=== PATIENT | female | born 1960 | race Caucasian/White ===

== ENCOUNTER 2025-05-20 14:11 | Outpatient (AMB) | payer OTHER, SELFPAY ==
--- NOTE | 2025-05-20 14:45 | MHC.OFFVIS ---
Intake Visit Reasons: 1 yr Sz Allergies Penicillins Allergy (Unknown, Verified 05/20/25 14:46) Unknown Medication List - Last Reconciled 05/20/25 by Porsha Olson CNP atenolol 50 mg PO DAILY atorvastatin 40 mg PO DAILY cholecalciferol (vitamin D3) 1,250 mcg PO QWEEK clonidine HCl mg PO divalproex (Depakote) 500 mg PO BID 90 days hydrochlorothiazide 25 mg PO DAILY losartan 100 mg PO DAILY metformin 500 mg PO BID omeprazole 20 mg PO DAILY oxybutynin chloride ER 10 mg PO DAILY HPI Comments Details: She was doing okay. No seizures. She has been seizure free for over 10 years. No medication side effects. Mild intermittent tremor in left hand is unchanged, mild, and no functional impairment. She notices it more when trying to hold something, like a plate of food. Walking with cane, no falls. Sleep was okay. History of idiopathic generalized tonic-clonic seizures. Her first seizure was in 1976 after the of her son and the second seizure after the of her daughter in 1991. She had a seizure recurrence in December of 2006 after she was weaned off her Depakote. It is described as a generalized tonic-clonic seizure with tongue biting but no incontinence. Since then, she has been on Depakote 500 mg twice a day with therapeutic drug levels and no seizure recurrence. She reports no side effects. Tremor in left hand intermittently and has not changed. Bladder control problems and urgency for which she is seeing urologist [facility] Medical History (Updated 05/20/25 @ 14:47 by Porsha Olson CNP) Benign essential tremor Seizure disorder Essential hypertension Other convulsions Review of Systems Const Denies chills, Denies daytime sleepiness, Denies difficulty sleeping, Denies fatigue, Denies fever(s), Denies frequent falls, Denies headache(s), Denies increased appetite, Denies poor appetite, Denies snoring, Denies weakness, Denies weight gain and Denies weight loss Eyes Denies loss of vision ENT Denies vertigo, Denies dizziness, Denies headache(s) and Denies neck pain Card Denies chest pain at rest, Denies chest pain with activity, Denies syncope, Denies leg edema, Denies palpitations, Denies dyspnea and Denies dyspnea on exertion Resp Denies cough, Denies dyspnea, Denies dyspnea on exertion and Denies snoring GI Denies abdominal pain, Denies constipation, Denies heartburn, Denies diarrhea and Denies nausea Denies urinary frequency, Denies urinary incontinence and Denies urinary urgency Musc Denies abnormal gait, Denies back pain, Denies myalgias, Denies arthralgias, Denies neck pain, Denies numbness and Denies tingling Neuro Denies abnormal gait, Denies vertigo, Denies dizziness, Denies syncope, Denies frequent falls, Denies headache(s), Denies lack of coordination, Denies loss of vision, Denies memory loss, Denies numbness, Denies Other visual disturbances, Denies restless legs, Denies seizure-like activity, Denies tingling, Denies paresthesias, Reports tremor(s) and Denies weakness Psych Denies anxiety, Denies depression, Denies auditory hallucinations, Denies memory loss and Denies visual hallucinations Endo Denies fatigue and Denies palpitations Physical Exam Const Other: General Appearance:? normal, in no acute distress. Heart:? S1, S2 normal, no murmurs. Lungs:? clear anteriorly and posteriorly. Musculoskeletal:? normal. Extremities:? no edema. Psych:? alert, oriented, cognitive function intact, cooperative with exam. Neuro Other: Abnormal Neurological Findings:?Very mild tremor in left hand, primarily thumb, on sustained posture. Walking with cane. Mental Status: alert and oriented X 3. Normal attention, orientation, memory, and affect. Cranial Nerves: Pupils are equal, round, and reactive to light. External ocular muscles are intact. Visual boyd are full, no ptosis. Face is symmetrical, no facial weakness or droop. Facial sensations are normal. Tongue protrudes in midline. Palate elevates symmetrically. Shoulder shrugging is normal Motor Examination: Normal muscle tone, bulk and strength. No atrophy or fasciculations. No drift of the extended upper extremities. DTR 2+. Plantars are flexor. Straight Leg Raisin degrees. Sensory Exam: Normal light touch, temperature, pinprick, vibration, and joint-position sensations. Rhomberg sign is absent. Coordination: No ataxia. No titubation. Gait Exam: With cane. Cerebellar Signs: [id number] and [id number] is normal. No dysdiadochokinesia. Extrapyramidal System: Tremor as above. No rigidity with normal facial expressions. No bradykinesia. No bradyphrenia. Normal arm swing and posture. No propulsion or retropulsion. Speech: Normal. No dysphasia or dysarthria. Assessment & Plan Assessment & Plan (1) Seizure disorder: Code(s): G40.909 - Epilepsy, unspecified, not intractable, without status epilepticus Category: Medical Plan: Continue Depakote 500mg 1 tablet twice a day. (2) Benign essential tremor: Code(s): G25.0 - Essential tremor Category: Medical Plan: Tremor was unchanged, mild and no functional impairment. No medication was needed at this time. Coding Level of Care Code Est Pt Level 3 (87782) Diagnoses Seizure disorder G40.909 Benign essential tremor G25.0
--- OUTSIDE RECORDS SUMMARY | 2025-05-20 15:08 | XMS_ITS | Clinical Summary ---
Author Organization [facility] [address] [facility] l[address] Address [address] [place] [address] Phone Care Team Providers Care Supervisor Ship Maintenance Services Name Role Phone Elizabeth Smith MD Primary Care Provider [phone] Allergies Active Allergy Reactions Criticality Noted Date Comments Amlodipine Swelling Medium 03/03/2017 Benzonatate Numbness 02/14/2014 tingling or swelling of the lips, tongue or mouth Penicillin G Potassium Nausea And Vomiting 12/08 Medications diclofenac (VOLTAREN) 1 % topical gel Apply 2 g topically 2 times daily as needed for Other (Knee PAIN). 4 Active oxyBUTYnin XL (DITROPAN-XL) 10 mg 24 hr tablet Take 1 tablet (10 mg total) by mouth 1 (one) time each day. 4 Active blood-glucose meter misc 1 Device by Does not apply route daily. 2 Active multivit-min/iro n/folic acid/K (ADULTS MULTIVITAMIN ORAL) Take by mouth. Active divalproex (Depakote) [address] tablet 1 tab bid 8 Active omeprazole (PriLOSEC) [address] capsule Take 1 capsule (20 mg total) by mouth 1 (one) time each day. 90 capsule 1 5 Active atenoloL (TENORMIN) 50 mg tablet TAKE 1 TABLET BY MOUTH DAILY 90 tablet 1 5 Active hydroCHLOROthiaz brittany (HYDRODIURIL) 25 mg tablet Take 1 tablet (25 mg total) by mouth 1 (one) time each day. 90 tablet 1 5 Active atorvastatin (LIPITOR) 40 mg tablet Take 1 tablet (40 mg total) by mouth 1 (one) time each day. 90 tablet 1 5 Active cloNIDine (CATAPRES) 0.1 mg tablet Take 1 tablet (0.1 mg total) by mouth 1 (one) time each day. 90 tablet 1 5 Active metFORMIN (GLUCOPHAGE) 500 mg tablet Take 1 tablet (500 mg total) by mouth 2 (two) times a day. 180 tablet 1 5 Active cholecalciferol (VITAMIN D-3) 1,250 mcg (50,000 unit) capsule Take 1 capsule (50,000 Units total) by mouth 1 (one) time per week. 12 capsule 5 Active losartan (COZAAR) 100 mg tablet Take 1 tablet (100 mg total) by mouth 1 (one) time each day. 90 tablet 5 Active losartan (COZAAR) 100 mg tablet Take 1 tablet (100 mg total) by mouth 1 (one) time each day. 90 tablet 1 5 05/20/20 25 Discontin ued(Reord er) Active Problems Problem Noted Date Diagnosed Date Vitamin D deficiency 02/04/2025 Type 2 diabetes mellitus wit h diabetic microalbuminuria, without long-term current use of insulin ([facility] V24, [facility] V28) 03/27/2023 Microalbuminuria 08/06/2021 Bilateral primary osteoarthritis of knee 020 DJD (degenerative joint disease) of knee 017 Overview (07/10/2024): 03/21/2018 - depo-medrol 80 mg bilateral GERD (gastroesophageal reflux disease) 6 Mixed hyperlipidemia 02/01/2013 Allergic rhinitis 01/04/2008 Hypertension 01/04/2008 Seizure disorder ([facility] V24, [facility] V28) 03/2 05/2008 Overview (07/10/2024): Followed by Dr. Hebert, last seizure 2007 Immunizations Name Administration Dates Next Due H1N1 Inj Preservative Free 09/14/2009 Influenza Quadravalent, MDCK , 0.5ml, preservative free (Flucelvax) 6mo and older 08/04/2021 Influenza trivalent, 0.5mL ( Fluzone High-dose) 65yo and older 09/08/2023 Influenza trivalent, 0.5mL, preservative free (Fluarix; FluLaval; Fluzone) ages 6mo and older (Afluria) 3 years and older 05/19/2016 Influenza trivalent, with pr eservative (Fluzone; Afluria) 6mo and older 05/05/2015,08/12/2010 Influenza, Unspecified 05/31/2018,2016,05/29/2014,05/23 Fibrenetix SARS-CoV-2 COVID-19, mRNA, LNP-S, preservative free 03/29/2022,01/16/2021,12/26/2020 Pneumococcal polysaccharide 23 valent (Pneumovax 23) 2yo and older 06/17/2013 Tdap Tetanus diptheria acell ular pertussis (Boostrix; Adacel) 7yo and older 11/19/2021 Zoster recombinant (Shingrix ) 19yo and older 05/04/2018,01/02/2018 Surgical History Surgery Date Site/Laterality Comments MULTIPLE TOOTH EXTRACTIONS PROCEDURE: HISTORICAL DENTAL EXTRACTION TUBAL LIGATION PROCEDURE: HISTORICAL TUBAL LIGATION; COMMENT: performed 2 mos s/p 2nd CS COLONOSCOPY 11/07/2008 PROCEDURE: DE COLONOSCOPY STOMA DX INCLUDING COLLJ SPEC SPX; COMMENT: Up to cecum, good preparation, normal colon exam OTHER SURGICAL HISTORY 10/09/2000 Right PROCEDURE: ---- OTHER ----; COMMENT: carpal tunnel SECTION PROCEDURE: HISTORICAL DELIVERY; COMMENT: 1976 and 1991 Medical History Medical History Date Comments Seizure disorder (CMS/HCC V2 4, CMS/HCC V28) 01/04/2008 DX:Seizure disorder ([facility]); C OMMENT: Followed by Dr. Hebert Hypertension 01/04/2008 DX:Hypertension Reflux 01/04/2008 DX:Reflux Allergic rhinitis 01/04/2008 DX:Allergic rh initis GERD (gastroesophageal reflux disease) 03/25/2016 DX:GERD (gastroesophageal reflux disease) Obesity 09/26/2013 DX:Obesity DJD (degenerative joint dise ase) of knee 01/03/2017 DX:DJD (degenerative joint d isease) of knee Severe obesity (BMI 35.0-39. 9) with comorbidity (CMS/HCC V24, CMS/HCC V28) 09/26/2013 DX:Severe obesi ty (BMI 35.0- 39.9) with comorbidity ([facility]) Family History Medical History Relation Name Comments Other: blood clot Brother 1 Heart attack Father chf, Diabetes Maternal Grandmother alem ons's Hyperlipidemia Mother [place] 2010, sten ts x 4 Hypertension Mother Diabetes Paternal Grandmother Hypertension Son Breast cancer Neg Hx Colon cancer Neg Hx Ovarian cancer Neg Hx Relation Name Status Comments Brother 1 Alive Brother 2 Alive Daughter Alive Father Maternal Grandfather Maternal Grandmother Mother Alive Paternal Grandfather Paternal Grandmother Sister 1 Alive Sister 2 Alive Son Alive Social History Tobacco Use Types Packs/Day Years Used Date Smoking Tobacco: Never Smokeless Tobacco: Never Tobacco Cessation:Counseling Given: Not Answered Alcohol Use Standard Drinks/Week Comments No 0 (1 standard drink = 0.6 oz pur e alcohol) Housing Instability Answer Date Recorde d Are you worried that in the next 2 months you may not have stable housing? No 09/17/2024 Food Access & Nutrition Answer Date Rec orded Do you have access to a vari ety of food including fruits and vegetables? Yes 09/17/2024 Access to Healthcare Answer Date Record ed Within the last 3 months, fran garcia many times did you visit the emergency department for your medical care? 0 09/17/2024 Health Literacy Answer Date Recorded How often do you need to hav e someone help you when you read instructions, pamphlets, or other written material from your doctor or pharmacy? Never 09/17/2024 Caregiver: How often do you need to have someone help you when you read instructions, pamphlets, or other written material from your doctor or pharmacy? Not on file 09/17/2024 Financial Risk Answer Date Recorded How hard is it for you to pa y for the very basics like food, housing, medical care, and air conditioning / heating? Patient declined 09/17/2024 Transportation Answer Date Recorded Has the lack of transportati on kept you from meetings, work, or from getting things needed for daily living? No Has the lack of transportati on kept you from medical appointments or from getting medications? No 09/17/2024 Social Isolation Answer Date Recorded How often do you feel lonely or isolated from th ose around you? Never 09/17/2024 Food Risk Answer Date Recorded Within the past 12 months we worried whether our food would run out before we got money to buy more. Never true 09/17/2024 Within the past 12 months th e food we bought just didn't last and we didn't have money to get more. Never true 09/17/2024 Dependent Care Answer Date Recorded Do you need help finding or paying for care for your loved ones. For example, child welfare caseworker or elderly care for an older adult? No 09/17/2024 Education Answer Date Recorded Do you think completing more education or training, like finishing a GED, going to college, or learning a trade, would be helpful for you? No 09/17/2024 Employment and Income Answer Date Recor ded During the last four weeks, have you been actively looking for work? No 09/17/2024 Living Situation Answer Date Recorded What is your living situation? 1 11/18/2023 Comments No Sex and Gender Information Value Date Recorded Sex Assigned at Not on file Legal Sex Female 4:01 AM EST Gender Identity Not on file Sexual Orientation Not on file Obstetrics History Para Term AB IAB SAB Ectopic Multiple Livin g Live Births 2 2 2 2 Date Outcome GA Total Labor Labor/2nd/3rd Weight Sex Type Anes PTL Erin A1 A5 Name Clin Term Term Last Filed Vital Signs Vital Sign Reading Time Taken Comments Blood Pressure 134/78 02/04/2025 9:51 AM EDT Pulse 54 02/04/2025 9:24 AM EDT Temperature 36.4 C (97.5 F) 02/04/2025 9:24 AM EDT Respiratory Rate 14 02/04/2025 9:24 AM EDT Oxygen Saturation - - Inhaled Oxygen Concentration - - Weight 88.9 kg (196 lb) 02/04/2025 9:24 AM EDT Height 160 cm (5' 3 ) 02/04/2025 9:24 AM EDT Body Mass Index 34.72 02/04/2025 9:24 AM EDT Plan of Treatment Upcoming Encounters Date Type Department Care Team (Late st Contact Info) Description 06/13/2025 2:00 PM EDT Office Visit Adult Medicine [facility] [address] [place] [address] Elizabeth Smith MD [address] [place] [id number] Health Maintenance Due Date Last Done Comments Diabetes: Annual Retina Eye Exam 1970 Pneumococcal Vaccine: 50+ Years (2 of 2 - PCV) 06/17/2014 06/17/2013 RSV Immunization Adult Patients (1 - Risk 60-74 years 1-dose series) 2018 Colorectal Cancer Screening: FIT-DNA (Cologuard) 09/17/2022 Medicare Annual Wellness Visit 09/17/2022 Osteoporosis Screening (Bone Density Screening) 09/17/2022 COVID-19 Vaccine ( season) 2024 03/29/2022, 02/26/2022, 01/16/2021, Additional history exists Diabetes: Annual Foot Exam 09/08/2024 09/08/2023 Depression Screening 10/09/2024 09/17/2024 Influenza Vaccine (#1) 2025 , 08/04/2021, 06/06/2020, Additional history exists Diabetes: Blood Sugar Control Test (HGBA1C) 08/06/2025 02/04/2025, 02/20/2024, 02/20/2024 Social Influencers of Health Screening 09/17/2025 09/17/2024 Falls Risk Assessment 12/17/2025 12/17/2024 Diabetes: Annual Urine Albumin-Creatinine Ratio (uACR) 02/04/2026 02/04/2025, 02/26/2024 Diabetes: Annual GFR (Glomerular Filtration Rate) 02/04/2026 02/04/2025, 02/20/2024, 02/20/2024 Hypertension/CHF/CAD Annual BMP Blood Test 02/04/2026 02/04/2025, 02/20/2024, 02/20/2024 Breast Cancer Screening 01/04/2027 01/05/20 25, 04/08/2023, 04/02/2022, Additional history exists Cholesterol Screening (Lipid Panel) 02/04/2030 02/04/2025, 08/23/2023 DTaP,Tdap,and Td Vaccines (2 - Td or Tdap) 11/19/2031 11/19/2021 Hepatitis C Screening Completed 05/25/2013 Zoster Vaccines Completed 05/04/2018, 01/02/2018 HIB Vaccines Aged Out No longer eligi ble based on patient's age to complete this topic HPV Vaccines Aged Out No longer eligi ble based on patient's age to complete this topic Hepatitis A Vaccines Aged Out No long er eligible based on patient's age to complete this topic Hepatitis B Vaccines Aged Out No long er eligible based on patient's age to complete this topic IPV Vaccines Aged Out No longer eligi ble based on patient's age to complete this topic MMR Vaccines Aged Out No longer eligi ble based on patient's age to complete this topic Meningococcal ACWY Vaccine Aged Out N o longer eligible based on patient's age to complete this topic Meningococcal B Vaccine Aged Out No l onger eligible based on patient's age to complete this topic RSV Immunization Patients Under 20 months Aged Out No longer eligible based on patient's age to complete this topic Varicella Vaccines Aged Out No longer eligible based on patient's age to complete this topic Procedures Procedure Name Priority Date/Time Associated Diagnosis Comments MICROALBUMIN CREATININE URINE RATIO Routine 02/04/2025 10:19 AM EDT Type 2 diabetes mellitus with diabetic microalbuminuria, without long-term current use of insulin ([facility] V24, [facility] V28) Microalbuminuria BASIC METABOLIC PANEL Routine 02/04/2025 10:19 AM EDT Primary hypertension HEMOGLOBIN A1C Routine 02/04/2025 10:19 AM EDT Type 2 diabetes mellitus with diabetic microalbuminuria, without long-term current use of insulin ([facility] V24, [facility] V28) Microalbuminuria LIPID PANEL WITH REFLEX TO DIRECT LDL Routine 02/04/2025 10:19 AM EDT Mixed hyperlipidemia MG MAMMO DIGITAL SCREENING W BONIFACIO BILAT Routine 01/04/2025 1:24 PM EDT Encounter for screening mammogram for breast cancer DIABETES FOOT EXAM Routine 09/08/2023 HEPATITIS C SCREENING Routine 05/25/2013 from Last 3 Months or Most Recently Relevant to Health Maintenance Results * Lipid panel with reflex to direct LDL (02/04/2025 10:19 AM EDT) Cholesterol 169 0 - 200 mg/dL LAB CHEMISTRY METHOD 02/04/2025 1:00 PM EDT [facility] Triglycerides 116 0 - 150 mg/dL LAB CHEMISTRY METHOD 02/04/2025 1:00 PM EDT [facility] HDL 63 >=40 mg/dL LAB CHEMISTRY METHOD 02/04/2025 1:00 PM EDT [facility] LDL Calculated 83 0 - 100 mg/dL LAB CHEMISTRY METHOD 02/04/2025 1:00 PM EDT [facility] VLDL Cholesterol Aidan 23.2 mg/dL LAB CHEMISTRY METHOD 02/04/2025 1:00 PM EDT [facility] Non HDL Chol. (LDL+VLDL) 106 <145 mg/dL LAB CHEMISTRY METHOD 02/04/2025 1:00 PM EDT [facility] Chol/HDL Ratio 2.7 0.0 - 4.4 LAB CHEMISTRY METHOD 02/04/2025 1:00 PM EDT [facility] Blood Venous blood specimen / Unknown Venipuncture / Unknown 02/04/2025 10:19 AM EDT 02/04/2025 10:19 AM EDT us Pradeep BOLANOS LAB BLOOD ORDERABLES Final Res ult [facility] [address] [place] [address], [place] [phone] * Microalbumin creatinine urine ratio (02/04/2025 10:19 AM EDT) Creatinine, Urine 79.0 mg/dL LAB CHEMISTRY METHOD 02/04/2025 3:19 PM EDT [facility] Microalb, Ur 9.0 0.0 - 29.0 mg/L LAB CHEMISTRY METHOD 02/04/2025 3:19 PM EDT [facility] Microalb/Creat Ratio 11 <30 mg/g creat LAB CHEMISTRY METHOD 02/04/2025 3:19 PM EDT [facility] Urine Urine specimen obtained by clean catch procedure / Unknown Non-blood Collection / Unknown 02/04/2025 10:19 AM EDT 02/04/2025 10:19 AM EDT Pradeep BOLANOS LAB URINE ORDERABLES Final Res ult [facility] [address] [place] [address], [place] [phone] * Hemoglobin A1c (02/04/2025 10:19 AM EDT) [facility] Hemoglobin A1C 6.3 <6.5 % LAB CHEMISTRY METHOD 02/04/2025 1:48 PM EDT [facility] Mean Bld Glu Estim. 134 mg/dL LAB CHEMISTRY METHOD 02/04/2025 1:48 PM EDT [facility] Blood Venous blood specimen / Unknown Venipuncture / Unknown 02/04/2025 10:19 AM EDT 02/04/2025 10:19 AM EDT Pradeep BOLANOS LAB BLOOD ORDERABLES Final Res ult [facility] [address] [place], [place] [address] [phone] * (ABNORMAL) Basic metabolic panel (02/04/2025 10:19 AM EDT) Sodium 135 133 - 145 mmol/L LAB CHEMISTRY METHOD 02/04/2025 12:45 PM [facility] Potassium 3.9 3.5 - 5.5 mmol/L LAB CHEMISTRY METHOD 02/04/2025 12:45 PM [facility] Chloride 101 96 - 110 mmol/L LAB CHEMISTRY METHOD 02/04/2025 12:45 PM [facility] CO2 27 21 - 32 mmol/L LAB CHEMISTRY METHOD 02/04/2025 12:45 PM [facility] Anion Gap 7 3 - 11 LAB CHEMISTRY METHOD 02/04/2025 12:45 PM [facility] Glucose 106(H) 70 - 100 mg/dL LAB CHEMISTRY METHOD 02/04/2025 12:45 PM [facility] BUN 23 5 - 25 mg/dL LAB CHEMISTRY METHOD 02/04/2025 12:45 PM [facility] Creatinine 0.81 0.50 - 1.10 mg/dL LAB CHEMISTRY METHOD 02/04/2025 12:45 PM [facility] eGFR 80 >=60 mL/min/1. 73m2 LAB CHEMISTRY METHOD 02/04/2025 12:45 PM [facility] Comment:Calculation based on the Chronic Kidney Disease Epidemiology Collaboration (CKD-EPI) equation refit without adjustment for race. BUN/Creatinine Ratio 28.4 LAB CHEMISTRY METHOD 02/04/2025 12:45 PM [facility] Calcium 9.7 8.5 - 10.5 mg/dL LAB CHEMISTRY METHOD 02/04/2025 12:45 PM [facility] Blood Venous blood specimen / Unknown Venipuncture / Unknown 02/04/2025 10:19 AM EDT 02/04/2025 10:19 AM EDT us Pradeep BOLANOS LAB BLOOD ORDERABLES Final Res ult [facility] [address] [place] [address], [place] [phone] * MG Mammo Digital Screening w Bonifacio bilat (01/04/2025 1:24 PM EDT) Anatomical Region Laterality Modality Breast Bilateral Mammography 01/06/2025 1:53 PM EDT Impressions 01/06/2025 1:57 PM EDT Benign. BI-RADS CATEGORY: 1 - NEGATIVE RECOMMENDATION: Screening bilateral mammogram is recommended in 1 year. Mammo Location: [facility], [address] [place] [address], [id number], . -------- FINAL REPORT -------- Dictated By: Rosalba Santillan Dictated Date: 01/06/2025 13:53 ET Assigned Physician: Rosalba Santillan Reviewed and Electronically Signed By: Rosalba Santillan Signed Date: 01/06/2025 13:57 ET Workstation ID: [id number] Transcribed By: Self Edit Transcribed Date: 01/06/2025 13:53 ET Narrative 01/06/2025 1:57 PM EDT CLINICAL: 64 years old, Female, routine annual exam. COMPARISON: Mammograms dating back to 03/27/2021 with most recent of 04/08/2023. TECHNIQUE: Bilateral MLO and CC views were obtained digitally with 3-D mammogram (digital breast tomosynthesis). Computer-aided detection was utilized in evaluation of this exam (CAD). FINDINGS: There is no evidence of suspicious mass or architectural distortion. No worrisome calcifications are evident. There has been no significant change from prior exam(s). BREAST DENSITY: B - There are scattered areas of fibroglandular density. Procedure Note Rosalba Santillan MD - 01/06/2025 CLINICAL: 64 years old, Female, routine annual exam. COMPARISON: Mammograms dating back to 03/27/2021 with most recent of04/08/2023. TECHNIQUE: Bilateral MLO and CC views were obtained digitally with 3-Dmammogram (digital breast tomosynthesis). Computer-aided detection wasutilized in evaluation of this exam (CAD). FINDINGS: There is no evidence of suspicious mass or architectural distortion. Noworrisome calcifications are evident. There has been no significantchange from prior exam(s). BREAST DENSITY: B - There are scattered areas of fibroglandular density. IMPRESSION: Benign. BI-RADS CATEGORY: 1 - NEGATIVE RECOMMENDATION: Screening bilateral mammogram is recommended in 1 year. Mammo Location: [facility], [address] [place] [address], [id number], . -------- FINAL REPORT -------- Dictated By: Rosalba Santillan Dictated Date: 01/06/2025 13:53 ET Assigned Physician: Rosalba Santillan Reviewed and Electronically Signed By: Rosalba Santillan Signed Date: 01/06/2025 13:57 ET Workstation ID: [id number] Transcribed By: Self Edit Transcribed Date: 01/06/2025 13:53 ET Elizabeth Smith MD IMG BI PROCEDURES Final Result * Diabetes Foot Exam (09/08/2023) Pathologist [facility] Diabetes: Annual Foot Exam abstracted Historical Provider HEALTH MAINTENANCE Final Result * Hepatitis C Screening (05/25/2013) Pathologist [facility] Hepatitis C Screening abstracted Historical Provider HEALTH MAINTENANCE Final Result from Last 3 Months or Most Recently Relevant to Health Maintenance Insurance [employer] MEDICARE Care Teams Supervisor Ship Maintenance Services Relationship Specialty Start Date End Date Elizabeth Smith MD [address] [place] [id number] PCP - General Internal Medicine 05/24/22
== END 2025-05-20 14:57 | disposition home or self-care (01) ==
LOC: HO.HSM 14:11
PROVIDERS: PCP Internal Medicine; Referring Provider Internal Medicine; Visit Provider Registered Nurse
DX: G40.909 Epilepsy, unspecified, not intractable, without status epilepticus (principal); G25.0 Essential tremor
CPT/HCPCS: 99213